=== PATIENT | female | born 1985 | race Caucasian/White ===

== ENCOUNTER 2020-02-12 15:05 | Outpatient (CLI) | payer OTHER, SELFPAY ==
--- NOTE | 2020-02-13 11:34 | WPDPFTINT ---
PFT Interpretation PFT Interpretation: This PFT met all criteria for ATS standards and reproducibility FEV/FVC post bronchodilator 80% of predicted FEV1 99% or 3.20 liters FVC 97% or 4.00 liters TLC 91% RV 65% RV/TLC 24% DLCO 72% of predicted when adjusted for alveolar volume but not adjusted for hemoglobin Flow volume loops were normal Impression: This is normal PFT other than mildly decreased diffusion capacity. The decreased diffusion capacity maybe due to anemia, pulmonary hypertension, various lung disease or normal variance. Clinical correlation is advised.
== END 2020-02-12 15:06 | disposition home or self-care (01) ==
LOC: ANHPFT 15:09
PROVIDERS: PCP Family Medicine; Visit Provider Nurse Practitioner
DX: J45.909 Unspecified asthma, uncomplicated (principal)
CPT/HCPCS: 94060; 94726; 94729

== ENCOUNTER 2022-08-16 09:35 | Outpatient (CLI) | payer OTHER, SELFPAY ==
--- NOTE | ~2022-08-16 | XR_ITS ---
EXAMINATION: XR chest 2V 08/16/2022 10:38 INDICATION: Asthma. Dyspnea. PROCEDURE: PA and lateral views of the chest COMPARISON: No prior studies for comparison. FINDINGS: The lungs are clear. The cardiomediastinal silhouette is within normal limits. There are no pleural effusions. There is no pneumothorax suspected. IMPRESSION: 1: NO ACUTE CARDIOPULMONARY DISEASE. Reviewed, dictated and finalized at location B. [employer]
--- NOTE | 2022-08-16 21:03 | WPDPFTINT ---
PFT Procedure Performed PFT Procedure Performed Spirometry with Pre/Post Bronchodilator Plethysmography (Lung Vol) Diffusing Cap (DLCO) Flow Vol Loop PFT Interpretation DATE of SERVICE: 08/16/2022 REQUESTING: Rosalba [id number] REASON FOR TESTING: asthma PULMONARY FUNCTION TESTS Results are reliable and reproducible. SPIROMETRY: Pre bronchodilator FEV1 is 3.23 L, 92%, normal. Pre bronchodilator FVC is 3.93 L, 92%, normal. FEV1/ FVC ratio was 82% normal. After bronchodilator there is a insignificant response, FEV1 increases by 3% and FVC increases by 3%. LUNG VOLUMES: Total lung capacity is 5.11 L, 90%, normal. Residual volume 1.11 L, 68%, normal. RV/TLC 23%, normal. Airway resistance 1.74, 109%, normal. DIFFUSION: DLCO is 22.9, 89%, normal. DLCO /VA is 4.84, 105%, normal. FLOW VOLUME LOOP: Unremarkable. IMPRESSION: This study shows normal spirometry, lung volumes and diffusion capacity. Lack of response to bronchodilator should not preclude use if clinically indicated. A prior pulmonary function study on 02/12/2020 showed similar results. The spirometry was normal, no change after bronchodilator. Total lung capacity was normal, residual volume also normal. Diffusion was slightly lower, 72% adjusted for alveolar volume and now this is 105%. The diffusion is now normal. Kathie Leiva MD
== END 2022-08-16 09:36 | disposition home or self-care (01) ==
LOC: ANHPFT 09:36
PROVIDERS: PCP Family Medicine; Visit Provider Nurse Practitioner
DX: J45.909 Unspecified asthma, uncomplicated (principal)
CPT/HCPCS: 71046; 94060; 94726; 94729

== ENCOUNTER 2022-09-19 12:50 | Outpatient (CLI) | payer OTHER, SELFPAY ==
--- NOTE | 2022-09-20 12:11 | WPDMETH ---
Methacholine Procedure Perform Procedure Performed Methacholine Challenge Methacholine Challenge Methacholine Challenge: DOS: 09/19/2022 REQUESTING: WILMA Neri REASON FOR TESTING: Asthma METHACHOLINE CHALLENGE This test was conducted per ATS guidelines. A previous study on 08/16/2022 showed normal spirometry, FEV1 was 92% predicted, 3.23 L. FVC was 92% predicted, 3.93 L and there was no airflow obstruction, FEV1/FVC was 82% predicted. The patient was exposed to sequentially increasing doses of methacholine in the usual manner. Results were reproducible. Level 1 - saline Level 2 - 0.025 mg Level 3 - 0.25 mg Level 4 - 2.5 mg Level 5 - 10 mg Level 6 - 25 mg The test was stopped after the final dose. The patient did not have a significant response to methacholine. The largest change in the FEV1 was 3%. This is a negative study. A decrease of 20% in the FEV1 is a positive result, and the testing is terminated. Flows returned to normal after bronchodilator was administered. IMPRESSION: This is a negative methacholine challenge. The best use for a methacholine challenge is to rule out asthma. Clinical correlation is advised. Kathie Leiva MD
--- NOTE | 2022-09-23 07:25 | WPDMETH ---
Methacholine Procedure Perform Procedure Performed Methacholine Challenge Methacholine Challenge Methacholine Challenge: This is a methacholine challenge test. The test was performed and interpreted in accordance with the 2017 ERS technical standard, endorsed by the ATS, using the GLI 2012 reference equations. Testing was performed with increasing doses of nebulized methacholine following a quadrupling dosage protocol. The methacholine dose was delivered via the [employer] Micromist nebulizer using a 1-minutes tidal breathing protocol. The best post-methacholine FEV1 values were used to determine the change from the post diluent FEV1. The delivered dose of methacholine was used to calculate the provocative dose causing a 20% fall in FEV1 (PD 20). of note the patient finished a round of oral prednisone for sinus infection on 09/14/2022. Last use of Symbicort 10 hours prior to testing, last use of albuterol 17 hours prior to testing, last use montelukast 10 hours prior to testing, last used of fluticasone 10 hours prior to testing Findings: Baseline FEV1 3.30 L, 94 % predicted. Post diluent FEV1 3.27 L Post 1.81 mcg methacholine FEV1 3.24 L, decreased 1% Post 7.26 mcg methacholine FEV1 3.33 L, increased 2% Post 29.03 mcg methacholine FEV1 3.31 L, increased 1% Post 116.1 mcg methacholine FEV1 3.33 L, increased 2% Post 464.4 mcg methacholine FEV1 3.37 L, decreased 3% Post albuterol nebulization FEV1 3.32 L Impression: The PD20 is > 400 mcg which is categorized as normal airway hyperresponsiveness. There are no prior methacholine challenge studies for comparison
== END 2022-09-19 12:51 | disposition home or self-care (01) ==
LOC: ANHPFT 12:51
PROVIDERS: PCP Family Medicine; Visit Provider Nurse Practitioner
DX: J45.909 Unspecified asthma, uncomplicated (principal)
CPT/HCPCS: 94070; J7674

== ENCOUNTER 2023-08-07 08:10 | Outpatient (CLI) | payer OTHER, SELFPAY ==
--- NOTE | 2023-08-07 15:33 | P.METCHAL_ITS ---
Methacholine Procedure Perform Procedure Performed Methacholine Challenge Methacholine Challenge Methacholine Challenge: A methacholine challenge was conducted, according to the ATS/ERS 2017 guidelines' 5-step dosimeter protocol, with increments of methacholine quadrupling at each step. After the administration of 464.4 mcg of methacholine at the fifth step, the FEV1 decreased by a roughly 12% from the initial baseline measurement. Upon administering a nebulized short-acting bronc hodilator, the FEV1 reverted to a level close to the baseline. Impression: Negative methacholine challenge testing, normal airway hyperresponsiveness.
== END 2023-08-07 08:11 | disposition home or self-care (01) ==
LOC: ANHPFT 08:11
PROVIDERS: PCP Family Medicine; Visit Provider Nurse Practitioner
DX: J45.909 Unspecified asthma, uncomplicated (principal)
CPT/HCPCS: 94070